=== PATIENT | female | born 1935 | race Hispanic/Latino ===

== ENCOUNTER 2020-11-25 22:54 | Emergency (ER) | payer BC ==
[~2020-11-25] VITALS: Ht 157.5 cm; Wt 76.2 kg
[2020-11-26] MEDS ORDERED: VENTOLIN HFA18 GM INH (00:50)
== END 2020-11-26 00:55 | disposition home or self-care (01) ==
LOC: ER 22:59
DX: R06.00 Dyspnea, unspecified (principal); I10 Essential (primary) hypertension
CPT/HCPCS: 71046; 93005; 99283